=== PATIENT | female | born 1935 | race Caucasian/White ===

== ENCOUNTER 2017-08-24 17:26 | Inpatient (IN) | payer MEDICARE, OTHER ==
[~2017-08-24] VITALS: Ht 170.2 cm; Wt 83.5 kg
--- NOTE | 2017-08-24 17:18 | NUR ---
patient arrived to unit via gurney and ambulance, no complaints of pain, no signs of distress noted, Bahamian speaking but able to verbalize needs in Icelandic, vitals as follows: 97/55, 93% on room air, 74 pulse, 97.5 oral temperature, as instructed no IV's or blood pressures to be drawn on left arm, call light placed in reach, bed locked and in lowest position
[2017-08-24] MEDS ORDERED: SIMV20TA6 PO (17:32)
[2017-08-24] MEDS ORDERED: CALC500T3 PO (17:33)
[2017-08-24] MEDS ORDERED: MEMA10TA PO (17:34)
[2017-08-24] MEDS ORDERED: FURO40TA5 PO (17:35)
[2017-08-24] MEDS ORDERED: METO-356 PO (17:35)
[2017-08-24] MEDS ORDERED: ANAS1TAB8 PO (17:36)
[2017-08-24] MEDS ORDERED: LOSA100T15 PO (17:37)
[2017-08-24] MEDS ORDERED: HYDR12.55 PO (17:37)
[2017-08-24] MEDS ORDERED: LEVE500T20 PO (17:38)
[2017-08-24] MEDS ORDERED: ACET650T10 PO (17:42)
[2017-08-24] MEDS ORDERED: HYDR-3972 PO (17:48)
[2017-08-24] MEDS ORDERED: MAG30ORA PO (17:52)
[2017-08-24] MEDS ORDERED: MAGN400O6 PO (17:56)
[2017-08-24] MEDS ORDERED: ZOLP5TAB8 PO (17:57)
[2017-08-24] MEDS ORDERED: ONDA4TAB10 PO (17:57)
[2017-08-24] MEDS ORDERED: INSU100V28 SQ ×2 (18:00→18:01)
[2017-08-24] MEDS ORDERED: DEXTROSE 50% 50 ML DISP.SYRIN IV PRN ×2 (18:15→21:15)
[2017-08-24] MEDS ORDERED: Z GUARD REMEDY PASTE 57 GM TUBE TOP PRN (18:15)
[2017-08-24] MEDS ORDERED: INSULIN REGULAR, HUMAN 300 UNIT/3 ML VIAL SQ PRN (18:15)
--- NOTE | 2017-08-24 19:35 | NUR ---
Received pt in bed, AAO x 3, faroese speaking but able to communicate basic needs in romansh. Verbally responsive and able to make needs known. Denies pain or discomfort at this time. No acute distress noted. Family at bedside. All safety measures and fall precautions maintained. MD notified regarding medication reconciliation, awaiting response. Call light and all personal belongings within reach. Will continue to monitor.
[2017-08-24 20:23] VITALS: BP 101/62
--- NOTE | 2017-08-24 20:37 | NUR ---
MD notified regarding medication reconciliation. Awaiting response. No acute distress noted. Will continue to monitor.
[2017-08-24] MEDS ORDERED: BLOOD SUGAR DIAGNOSTIC 1 EACH STRIP VI SCH (21:00)
[2017-08-24] MEDS ORDERED: ONDANSETRON HCL 4 MG TABLET PO PRN (21:15)
[2017-08-24] MEDS ORDERED: HYDROCODONE/APAP 5-325MG TABLET PO PRN (21:15)
[2017-08-24] MEDS ORDERED: ZOLPIDEM 5 MG TABLET PO PRN (21:15)
--- NOTE | 2017-08-25 06:32 | NUR ---
Pt slept comfortably throughout the shift. No complaints or pain or discomfort. No acute distress noted. Kept clean and dry. MD completed med recon. All needs anticipated and met accordingly. Safety maintained. Call light and all personal belongings within reach. AM blood sugar noted to be 220; will endorse to AM shift. Will continue to monitor.
[2017-08-25] MEDS: BLOOD SUGAR DIAGNOSTIC 1 EACH STRIP VI SCH ×4 (06:34→20:39)
[2017-08-25 08:37] VITALS: BP 111/65
[2017-08-25] MEDS: LEVETIRACETAM 500 MG TABLET PO SCH ×2 (10:14→20:40)
[2017-08-25] MEDS: LOSARTAN POTASSIUM 50 MG TABLET PO SCH (10:15)
[2017-08-25] MEDS: FUROSEMIDE 40 MG TABLET PO SCH (10:16)
[2017-08-25] MEDS: CALCIUM CARBONATE 500 MG TABLET PO SCH (10:16)
[2017-08-25] MEDS: MEMANTINE HCL 10 MG TABLET PO SCH (10:16)
[2017-08-25] MEDS: METOPROLOL SUCCINATE XL 25 MG TAB.SR.24H PO SCH (10:20)
[2017-08-25] MEDS: ANASTROZOLE 1 MG TABLET PO SCH (10:20)
[2017-08-25] MEDS: INSULIN REGULAR, HUMAN 300 UNIT/3 ML VIAL SQ PRN ×4 (10:22→20:42)
--- NOTE | 2017-08-25 13:59 | NUR ---
INTERDISCIPLINARY TEAM CONFERENCE
--- NOTE | 2017-08-25 15:09 | NUR ---
notified md about critical value for blood sugar. no new orders.
[2017-08-25] MEDS: SIMVASTATIN 20 MG TABLET PO SCH (17:02)
--- NOTE | 2017-08-25 18:31 | NUR ---
pt stable throughout the day. md notified for high blood glucose in lunchtime. covered as ordered. pt vitals stable. no new injuries noted. ordered stool softener because pt has not had a bowel movement in three days. will endorse to assistant casino shift manager nurse.
[2017-08-25] MEDS ORDERED: BISACODYL 5 MG TABLET.DR PO ONE (18:45)
--- NOTE | 2017-08-25 19:35 | NUR ---
Received pt in bed, AAO x 3 with daughter at bedside. No acute distress noted. Verbally responsive and able to make needs known. Denies pain or discomfort at this time. All safety measures and fall precautions maintained. Call light and all personal belongings within reach. Will continue to monitor.
[2017-08-25 20:30] VITALS: BP 105/79
[2017-08-26] MEDS ORDERED: ACETAMINOPHEN 325 MG TABLET PO PRN (00:30)
[2017-08-26] MEDS ORDERED: DEXTROSE 50% 50 ML DISP.SYRIN IV PRN (00:30)
[2017-08-26] MEDS: BLOOD SUGAR DIAGNOSTIC 1 EACH STRIP VI SCH ×4 (06:43→20:40)
--- NOTE | 2017-08-26 07:42 | NUR ---
Patient noted resting in bed with eyes closed, no complaints of pain, no signs of distress noted, call light in reach, bed locked and in lowest position, x2 bed rails, bed alarm in place
[2017-08-26] MEDS: INSULIN REGULAR, HUMAN 300 UNIT/3 ML VIAL SQ PRN ×2 (08:00→12:07)
[2017-08-26] MEDS: MEMANTINE HCL 10 MG TABLET PO SCH (08:41)
[2017-08-26] MEDS: CALCIUM CARBONATE 500 MG TABLET PO SCH (08:41)
[2017-08-26] MEDS: LEVETIRACETAM 500 MG TABLET PO SCH ×2 (08:41→20:36)
[2017-08-26] MEDS: HYDROCHLOROTHIAZIDE 12.5 MG CAPSULE PO SCH (08:42)
[2017-08-26] MEDS: FUROSEMIDE 40 MG TABLET PO SCH (08:42)
[2017-08-26] MEDS: LOSARTAN POTASSIUM 50 MG TABLET PO SCH (08:44)
[2017-08-26] MEDS: ANASTROZOLE 1 MG TABLET PO SCH (08:44)
[2017-08-26] MEDS: METOPROLOL SUCCINATE XL 25 MG TAB.SR.24H PO SCH (08:44)
[2017-08-26 08:55] VITALS: BP 100/56
[2017-08-26] MEDS: SIMVASTATIN 20 MG TABLET PO SCH (17:48)
--- NOTE | 2017-08-26 20:04 | NUR ---
resting in bed. awake alert and oriented. no acute distress noted. fall precautions maintained. admitted lucien subdural hematoma. needs attended. denies any pain nor any discomfort. will monitor patient. voiding without any difficulty.
[2017-08-26] MEDS: INSULIN REGULAR, HUMAN 300 UNITS/3 ML VIAL SQ PRN (20:49)
[2017-08-26 20:53] VITALS: BP 97/63
--- NOTE | 2017-08-27 05:25 | NUR ---
SLEPT MOST OF THE SHIFT. NO ACUTE DISTRESS NOTED. VOIDED. NEEDS ATTENDED. NO COMPLAINTS PRESENTED SO FAR. VSS.
[2017-08-27] MEDS: BLOOD SUGAR DIAGNOSTIC 1 EACH STRIP VI SCH ×4 (06:29→20:42)
[2017-08-27 08:00] VITALS: BP 109/62
[2017-08-27] MEDS: INSULIN REGULAR, HUMAN 300 UNIT/3 ML VIAL SQ PRN ×3 (08:13→16:18)
[2017-08-27] MEDS: MEMANTINE HCL 10 MG TABLET PO SCH (08:15)
[2017-08-27] MEDS: ANASTROZOLE 1 MG TABLET PO SCH (08:15)
[2017-08-27] MEDS: FUROSEMIDE 40 MG TABLET PO SCH (08:15)
[2017-08-27] MEDS: CALCIUM CARBONATE 500 MG TABLET PO SCH (08:16)
[2017-08-27] MEDS: LEVETIRACETAM 500 MG TABLET PO SCH ×2 (08:16→20:37)
[2017-08-27] MEDS: METOPROLOL SUCCINATE XL 25 MG TAB.SR.24H PO SCH (08:17)
[2017-08-27] MEDS: HYDROCHLOROTHIAZIDE 12.5 MG CAPSULE PO SCH (08:17)
--- NOTE | 2017-08-27 08:30 | NUR ---
Received patient awake, alert x4. Resting in bed. Denies any pain. Insulin coverage given, medications tolerated well. Call light within reach encouraged to call for needs.
[2017-08-27] MEDS: LOSARTAN POTASSIUM 50 MG TABLET PO SCH (09:00)
[2017-08-27 09:53] LABS: BASOPHILS # (AUTO) 0.1 K/uL (0.0-8.0); BASOPHILS % (AUTO) 0.9 % (0.0-2.0); EOSINOPHILS # (AUTO) 0.1 K/uL (0.0-0.7); EOSINOPHILS % (AUTO) 1.9 % (0.0-7.0); HEMATOCRIT 39.5 % (31.2-41.9); HEMOGLOBIN 13.4 g/dL (10.9-14.3); LYMPHOCYTES # (AUTO) 1.7 K/uL (20.0-40.0); LYMPHOCYTES % (AUTO) 25.3 % (20.5-51.5); MEAN CORPUSCULAR HEMOGLOBIN 28.2 uug (24.7-32.8); MEAN CORPUSCULAR HGB CONC 34 g/dL (32.3-35.6); MEAN CORPUSCULAR VOLUME 83.1 fL (75.5-95.3); MONOCYTES # (AUTO) 0.4 K/uL (2.0-10.0); MONOCYTES % (AUTO) 6.8 % (0.0-11.0); NEUTROPHILS # (AUTO) 4.3 K/uL (1.8-8.9); NEUTROPHILS % (AUTO) 65.1 % (38.5-71.5); PLATELET COUNT (AUTO) 221 K/uL (179-408); RED BLOOD CELL COUNT(AUTO) 4.75 MIL/uL (3.63-4.92); WHITE BLOOD COUNT (AUTO) 6.6 K/uL (3.8-11.8)
[2017-08-27 10:11] LABS: ALANINE AMINOTRANSFERASE 20 U/L (14-59); ALKALINE PHOSPHATASE 58 U/L (50-136); ASPARTATE AMINOTRANSFERASE 9 U/L (15-37); BILIRUBIN,TOTAL 0.5 mg/dL (0.2-1.0); CARBON DIOXIDE 30 mmol/L (21-32); CHLORIDE 97 mmol/L (98-107); CREATININE 0.8 mg/dL (0.6-1.3); GLUCOSE 288 mg/dL (74-106); MAGNESIUM 1.5 mg/dL (1.8-2.4); PHOSPHOROUS 3.9 mg/dL (2.5-4.9); TOTAL PROTEIN, SERUM 6.4 g/dL (6.4-8.2); UREA NITROGEN, BLOOD 17 mg/dL (7-18)
--- NOTE | 2017-08-27 10:20 | NUR ---
Critical lab value Potassium at 2.8. Paged and informed Dr. Rishi Perez.
[2017-08-27 10:21] LABS: POTASSIUM 2.8 mmol/L (3.5-5.1)
[2017-08-27] MEDS ORDERED: POTASSIUM CHLORIDE 20 MEQ TAB.PRT.SR PO ONE (10:45)
[2017-08-27] MEDS: SIMVASTATIN 20 MG TABLET PO SCH (18:03)
--- NOTE | 2017-08-27 18:25 | NUR ---
With family at bedside. Denies any pain. Stable throughout the shift.
--- NOTE | 2017-08-27 20:04 | NUR ---
resting in bed. aaox3 no acute distress noted. needs attended. kept comfortable. denies any pain nor any discomfort. will monitor patient.
[2017-08-27 20:17] VITALS: BP 97/53
[2017-08-27] MEDS: DOCUSATE SODIUM 100 MG CAPSULE PO SCH (20:38)
[2017-08-27] MEDS: INSULIN REGULAR, HUMAN 300 UNITS/3 ML VIAL SQ PRN (20:44)
[2017-08-28] MEDS: BLOOD SUGAR DIAGNOSTIC 1 EACH STRIP VI SCH ×4 (06:20→21:13)
--- NOTE | 2017-08-28 07:15 | NUR ---
Received report from night shift supervisor nurse, patient in bed awake, no evidence of distress noted at this time. bed in low position, side rails up x2.
[2017-08-28] MEDS: INSULIN REGULAR, HUMAN 300 UNIT/3 ML VIAL SQ PRN ×3 (08:13→17:13)
[2017-08-28] MEDS: CALCIUM CARBONATE 500 MG TABLET PO SCH (08:14)
[2017-08-28] MEDS: LOSARTAN POTASSIUM 50 MG TABLET PO SCH ×2 (08:14→08:30)
[2017-08-28] MEDS: HYDROCHLOROTHIAZIDE 12.5 MG CAPSULE PO SCH ×2 (08:14→08:30)
[2017-08-28] MEDS: FUROSEMIDE 40 MG TABLET PO SCH (08:14)
[2017-08-28] MEDS: MEMANTINE HCL 10 MG TABLET PO SCH (08:20)
[2017-08-28] MEDS: LEVETIRACETAM 500 MG TABLET PO SCH ×2 (08:20→21:13)
[2017-08-28] MEDS: ANASTROZOLE 1 MG TABLET PO SCH (08:23)
[2017-08-28] MEDS: METOPROLOL SUCCINATE XL 25 MG TAB.SR.24H PO SCH (08:29)
[2017-08-28 08:55] VITALS: BP 91/55
[2017-08-28] MEDS: SIMVASTATIN 20 MG TABLET PO SCH (17:11)
--- NOTE | 2017-08-28 18:00 | NUR ---
Patient has been cooperative with care, no incidents today. Patient participated in all therapies with no distress noted. Currently patient is in bed, awake, no evidence of distress noted. Bed in low position, side rails up x2.
--- NOTE | 2017-08-28 19:30 | NUR ---
Patient stable at start of shift. Bahamian speaking but is able to speak some words in Maltese and make her needs known. Patient is A/O x3 with no current signs of pain, sob, or acute distress. Pertinent assessment completed. Bed in low position, locked, x2 side rails up. Encouraged patient to use call light when in need of assistance. Call light placed within reach. Will continue to monitor pt through shift.
[2017-08-28 20:50] VITALS: BP 105/65
[2017-08-28] MEDS: DOCUSATE SODIUM 100 MG CAPSULE PO SCH (21:13)
[2017-08-28] MEDS: INSULIN REGULAR, HUMAN 300 UNITS/3 ML VIAL SQ PRN (21:24)
--- NOTE | 2017-08-29 05:51 | NUR ---
Patient stable through shift. No acute distress noted. Was able to sleep well through the shift. Vital signs WNL. All needs attended to. All meds administered as ordered per MD. Safety measures implemented. Call light within reach of pt. Will endorse to day shift nurse.
[2017-08-29] MEDS: BLOOD SUGAR DIAGNOSTIC 1 EACH STRIP VI SCH ×4 (06:39→20:43)
[2017-08-29 07:03] LABS: CARBON DIOXIDE 31 mmol/L (21-32); CREATININE 0.7 mg/dL (0.6-1.3); GLUCOSE 187 mg/dL (74-106); UREA NITROGEN, BLOOD 16 mg/dL (7-18)
[2017-08-29 07:08] LABS: CHLORIDE 100 mmol/L (98-107)
[2017-08-29 07:37] LABS: POTASSIUM 2.8 mmol/L (3.5-5.1)
[2017-08-29 08:14] VITALS: BP 129/60
--- NOTE | 2017-08-29 09:09 | NUR ---
Notified Dr. Fredo Brown regarding potassium of 2.8 with new order for potassium PO and IV. Patient made aware.
[2017-08-29] MEDS ORDERED: POTASSIUM CHLORIDE 20 MEQ TAB.PRT.SR PO ONE (09:15)
[2017-08-29] MEDS ORDERED: POTASSIUM CHLORIDE 50 ML IV SCH (09:15)
[2017-08-29] MEDS: LEVETIRACETAM 500 MG TABLET PO SCH ×2 (09:40→20:42)
[2017-08-29] MEDS: FUROSEMIDE 40 MG TABLET PO SCH (09:41)
[2017-08-29] MEDS: MEMANTINE HCL 10 MG TABLET PO SCH (09:42)
[2017-08-29] MEDS: CALCIUM CARBONATE 500 MG TABLET PO SCH (09:43)
[2017-08-29] MEDS: HYDROCHLOROTHIAZIDE 12.5 MG CAPSULE PO SCH (09:44)
[2017-08-29] MEDS: LOSARTAN POTASSIUM 50 MG TABLET PO SCH (09:44)
[2017-08-29] MEDS: METOPROLOL SUCCINATE XL 25 MG TAB.SR.24H PO SCH (09:45)
[2017-08-29] MEDS: ANASTROZOLE 1 MG TABLET PO SCH (09:48)
[2017-08-29] MEDS: INSULIN REGULAR, HUMAN 300 UNIT/3 ML VIAL SQ PRN ×2 (10:03→17:23)
[2017-08-29] MEDS: NORMAL SALINE IV SCH ×2 (12:06→14:42)
[2017-08-29] MEDS: POTASSIUM CHLORIDE IV SCH ×2 (12:06→14:42)
--- NOTE | 2017-08-29 15:05 | NUR ---
Consult order placed for meal preferences. Spoke with the patient about current diet ([id number]).bill recapitulation clerk also assist patient on menu selection. Family is brining food from home,spoke with the nurse and request to have MD approval for food from home. Family is aware of current diet/DM diet. Addendum: 08/31/17 at [address] Amended: Links added.
[2017-08-29] MEDS: SIMVASTATIN 20 MG TABLET PO SCH (17:21)
--- NOTE | 2017-08-29 19:44 | NUR ---
Pt sitting on the chair at bedside. Assisted to the bathroom. Ambulate using walker with assist. AAO x3. Italian speaking. Able to make needs known. No acute distress noted. No c/o pain or discomfort. Safety measures maintained. Bed alarm on. Call light and personal belongings within reach. Continue to monitor.
--- NOTE | 2017-08-29 20:19 | NUR ---
Informed Dr. Fredo Brown regarding blood sugar trend and MD ordered Metformin 500mg BID. Also informed him that patient is routinely taking Lasix and MD ordered potassium 10mEq daily and to repeat BMP in am. Order carried out.
[2017-08-29 20:21] VITALS: BP 98/58
[2017-08-29] MEDS: MAGNESIUM HYDROXIDE 30 ML LIQUID UDC PO PRN (20:42)
[2017-08-29] MEDS: DOCUSATE SODIUM 100 MG CAPSULE PO SCH (20:42)
[2017-08-29] MEDS: INSULIN REGULAR, HUMAN 300 UNITS/3 ML VIAL SQ PRN (20:46)
--- NOTE | 2017-08-30 05:48 | NUR ---
Pt slept comfortably t/o the night. Meds and insulin coverage given per MD's order. Assisted to the bathroom as needed. All needs attended to promptly. Will endorse to day shift RN. Continue to monitor.
[2017-08-30] MEDS: BLOOD SUGAR DIAGNOSTIC 1 EACH STRIP VI SCH ×4 (06:36→20:39)
[2017-08-30 08:36] LABS: CARBON DIOXIDE 33 mmol/L (21-32); CHLORIDE 101 mmol/L (98-107); CREATININE 0.7 mg/dL (0.6-1.3); GLUCOSE 174 mg/dL (74-106); POTASSIUM 3.4 mmol/L (3.5-5.1); UREA NITROGEN, BLOOD 20 mg/dL (7-18)
[2017-08-30] MEDS: FUROSEMIDE 40 MG TABLET PO SCH (08:56)
[2017-08-30] MEDS: LEVETIRACETAM 500 MG TABLET PO SCH ×2 (08:56→20:38)
[2017-08-30] MEDS: POTASSIUM CHLORIDE 10 MEQ CAPSULE.SA PO SCH (08:56)
[2017-08-30] MEDS: HYDROCHLOROTHIAZIDE 12.5 MG CAPSULE PO SCH (08:57)
[2017-08-30] MEDS: METFORMIN HCL 500 MG TABLET PO SCH ×2 (08:57→18:35)
[2017-08-30] MEDS: CALCIUM CARBONATE 500 MG TABLET PO SCH (08:57)
[2017-08-30] MEDS: MEMANTINE HCL 10 MG TABLET PO SCH (08:59)
[2017-08-30] MEDS: LOSARTAN POTASSIUM 50 MG TABLET PO SCH (09:00)
[2017-08-30] MEDS: METOPROLOL SUCCINATE XL 25 MG TAB.SR.24H PO SCH (09:00)
[2017-08-30] MEDS: ANASTROZOLE 1 MG TABLET PO SCH (09:04)
[2017-08-30] MEDS: INSULIN REGULAR, HUMAN 300 UNIT/3 ML VIAL SQ PRN ×3 (09:05→16:53)
[2017-08-30 11:46] VITALS: BP 100/46
[2017-08-30] MEDS: SIMVASTATIN 20 MG TABLET PO SCH (18:35)
--- NOTE | 2017-08-30 19:30 | NUR ---
Patient stable sleeping comfortably at start of shift. No signs of pain, sob, or acute distress. patient is a/o x4 & North Korean speaking but able to make needs known. Pertinent assessment completed. Vital signs WNL at start of shift. Bed in low position x2 side rails up. Call light placed within reach of pt. will continue to monitor pt through shift.
[2017-08-30 20:10] VITALS: BP 108/56
[2017-08-30] MEDS: DOCUSATE SODIUM 100 MG CAPSULE PO SCH (20:38)
[2017-08-30] MEDS: INSULIN REGULAR, HUMAN 300 UNITS/3 ML VIAL SQ PRN (20:43)
--- NOTE | 2017-08-31 05:35 | NUR ---
Patient slept well through shift. No acute distress noted. Assisted patient to restroom x2 during the shift. All needs attended to. All meds & insulin coverage administered per MD order. Safety measures implemented. Call light within reach of pt. will endorse to day shift RN.
[2017-08-31] MEDS: BLOOD SUGAR DIAGNOSTIC 1 EACH STRIP VI SCH ×4 (06:36→20:22)
--- NOTE | 2017-08-31 06:36 | NUR ---
Blood sugar this AM at 178. Will endorse to day shift RN to administer insulin with breakfast tray.
[2017-08-31 08:32] VITALS: BP 116/54
[2017-08-31] MEDS: FUROSEMIDE 40 MG TABLET PO SCH (08:51)
[2017-08-31] MEDS: POTASSIUM CHLORIDE 10 MEQ CAPSULE.SA PO SCH (08:51)
[2017-08-31] MEDS: METFORMIN HCL 500 MG TABLET PO SCH ×2 (08:51→17:38)
[2017-08-31] MEDS: LEVETIRACETAM 500 MG TABLET PO SCH ×2 (08:51→20:22)
[2017-08-31] MEDS: CALCIUM CARBONATE 500 MG TABLET PO SCH (08:51)
[2017-08-31] MEDS: MEMANTINE HCL 10 MG TABLET PO SCH (08:52)
[2017-08-31] MEDS: HYDROCHLOROTHIAZIDE 12.5 MG CAPSULE PO SCH (08:52)
[2017-08-31] MEDS: LOSARTAN POTASSIUM 50 MG TABLET PO SCH (08:53)
[2017-08-31] MEDS: METOPROLOL SUCCINATE XL 25 MG TAB.SR.24H PO SCH (08:54)
[2017-08-31] MEDS: ANASTROZOLE 1 MG TABLET PO SCH (09:02)
[2017-08-31] MEDS: INSULIN REGULAR, HUMAN 300 UNIT/3 ML VIAL SQ PRN (12:13)
[2017-08-31] MEDS: SIMVASTATIN 20 MG TABLET PO SCH (17:38)
[2017-08-31] MEDS: MAGNESIUM HYDROXIDE 30 ML LIQUID UDC PO PRN (17:45)
--- NOTE | 2017-08-31 19:30 | NUR ---
Patient currently sleeping comfortably at start of shift. No signs of acute distress, pain, or sob. Patient is a/ox3, Montenegrin speaking but able to make needs known. Pertinent assessment completed. bed in low position x2 side rails up. Call light within reach of pt. Will continue to monitor pt through shift.
[2017-08-31] MEDS: DOCUSATE SODIUM 100 MG CAPSULE PO SCH (20:22)
[2017-08-31] MEDS: INSULIN REGULAR, HUMAN 300 UNITS/3 ML VIAL SQ PRN (20:24)
--- NOTE | 2017-09-01 06:07 | NUR ---
Patient slept well through shift. No acute distress noted. Vital signs WNL. All needs attended to. All meds & insulin administered as ordered per MD. Safety measures implemented. Call light within reach of patient. Will endorse to day shift RN.
[2017-09-01] MEDS: BLOOD SUGAR DIAGNOSTIC 1 EACH STRIP VI SCH ×4 (06:31→21:19)
[2017-09-01 08:00] VITALS: BP 94/50
[2017-09-01] MEDS: INSULIN REGULAR, HUMAN 300 UNIT/3 ML VIAL SQ PRN ×2 (08:06→12:24)
[2017-09-01] MEDS: CALCIUM CARBONATE 500 MG TABLET PO SCH (08:07)
[2017-09-01] MEDS: LEVETIRACETAM 500 MG TABLET PO SCH ×2 (08:07→21:19)
[2017-09-01] MEDS: POTASSIUM CHLORIDE 10 MEQ CAPSULE.SA PO SCH (08:07)
[2017-09-01] MEDS: METFORMIN HCL 500 MG TABLET PO SCH ×2 (08:08→17:13)
[2017-09-01] MEDS: MEMANTINE HCL 10 MG TABLET PO SCH (08:08)
[2017-09-01] MEDS: FUROSEMIDE 40 MG TABLET PO SCH (08:08)
[2017-09-01] MEDS: METOPROLOL SUCCINATE XL 25 MG TAB.SR.24H PO SCH (08:09)
[2017-09-01] MEDS: LOSARTAN POTASSIUM 50 MG TABLET PO SCH (08:10)
[2017-09-01] MEDS: HYDROCHLOROTHIAZIDE 12.5 MG CAPSULE PO SCH (08:12)
[2017-09-01] MEDS: ANASTROZOLE 1 MG TABLET PO SCH (08:15)
--- NOTE | 2017-09-01 09:05 | NUR ---
SBAR report received, board updated. Pt assessed to alert and oriented. Pt able to make needs known. No acute distress noted. Bed in locked and lowest position. pt ate 100% of breakfast. Pt complaint with all routine morning medications. BP medications held due to decreased BP 94/50, 62. All comfort and safety measures met. Will continue to monitor.
--- NOTE | 2017-09-01 14:15 | NUR ---
INTERDISCIPLINARY TEAM CONFERENCE
[2017-09-01] MEDS: SIMVASTATIN 20 MG TABLET PO SCH (17:13)
--- NOTE | 2017-09-01 18:11 | NUR ---
Pt sitting comfortably in semi-fowlers. Bed in locked & lowest position. Personal belongings and call light placed within reach. Pt last blood sugar levels before dinner 124 requiring no insulin coverage. Pt denies pain and discomfort at this time. Will continue to monitor and endorse to oncoming night assistant.
--- NOTE | 2017-09-01 19:40 | NUR ---
Received pt in bed, AAO x 3 with family at bedside. No acute distress noted. Verbally responsive and able to make needs known. Denies pain or discomfort at this time. All safety measures and fall precautions maintained. Call light and all personal belongings within reach. Will continue to monitor.
[2017-09-01 21:06] VITALS: BP 102/57
[2017-09-01] MEDS: DOCUSATE SODIUM 100 MG CAPSULE PO SCH (21:19)
[2017-09-01] MEDS: INSULIN REGULAR, HUMAN 300 UNITS/3 ML VIAL SQ PRN (21:22)
[2017-09-02] MEDS: BLOOD SUGAR DIAGNOSTIC 1 EACH STRIP VI SCH ×4 (06:32→20:29)
--- NOTE | 2017-09-02 08:00 | NUR ---
Received patient awake, alert, verbally responsive sitting up on the chair, not in any form of acute distress. She denies any pain or discomfort at this time. Call light placed within reach. Reminded to use call light when in need of assistance. Assisted to her needs.
[2017-09-02 09:00] VITALS: BP 106/47
[2017-09-02] MEDS: LOSARTAN POTASSIUM 50 MG TABLET PO SCH (09:00)
[2017-09-02] MEDS: METOPROLOL SUCCINATE XL 25 MG TAB.SR.24H PO SCH (09:00)
[2017-09-02] MEDS: HYDROCHLOROTHIAZIDE 12.5 MG CAPSULE PO SCH (09:00)
[2017-09-02] MEDS: METFORMIN HCL 500 MG TABLET PO SCH ×2 (09:07→17:40)
[2017-09-02] MEDS: FUROSEMIDE 40 MG TABLET PO SCH (09:07)
[2017-09-02] MEDS: CALCIUM CARBONATE 500 MG TABLET PO SCH (09:07)
[2017-09-02] MEDS: POTASSIUM CHLORIDE 10 MEQ CAPSULE.SA PO SCH (09:08)
[2017-09-02] MEDS: LEVETIRACETAM 500 MG TABLET PO SCH ×2 (09:08→20:27)
[2017-09-02] MEDS: MEMANTINE HCL 10 MG TABLET PO SCH (09:09)
[2017-09-02] MEDS: ANASTROZOLE 1 MG TABLET PO SCH (09:12)
[2017-09-02] MEDS: INSULIN REGULAR, HUMAN 300 UNIT/3 ML VIAL SQ PRN ×2 (09:14→12:35)
[2017-09-02] MEDS: SIMVASTATIN 20 MG TABLET PO SCH (17:40)
--- NOTE | 2017-09-02 19:35 | NUR ---
Received patient laying in bed, awake, alert with family at bedside. shift report done at bedside. Vital signs taken and recorded, with no signs of sob, or acute distress. Denies of pain. Pertinent assessment completed. Safety measures provided, bed in low position x2 side rails up. call light placed within reach of pt. will continue to monitor pt through shift.
[2017-09-02] MEDS: DOCUSATE SODIUM 100 MG CAPSULE PO SCH (20:27)
[2017-09-02] MEDS: MAGNESIUM HYDROXIDE 30 ML LIQUID UDC PO PRN (20:27)
[2017-09-02] MEDS: INSULIN REGULAR, HUMAN 300 UNITS/3 ML VIAL SQ PRN (20:31)
[2017-09-02 20:43] VITALS: BP 103/56
[2017-09-03] MEDS: BLOOD SUGAR DIAGNOSTIC 1 EACH STRIP VI SCH ×4 (06:18→20:36)
[2017-09-03 07:00] VITALS: BP 104/51
--- NOTE | 2017-09-03 07:30 | NUR ---
received report from night nurse. patient stable, awake in bed upon initial assessment. no s/s pain or acute distress. VSS. call light within reach. will continue to monitor
[2017-09-03] MEDS: INSULIN REGULAR, HUMAN 300 UNIT/3 ML VIAL SQ PRN ×2 (07:59→11:50)
[2017-09-03] MEDS: METFORMIN HCL 500 MG TABLET PO SCH ×2 (08:02→18:05)
[2017-09-03] MEDS: LOSARTAN POTASSIUM 50 MG TABLET PO SCH (09:00)
[2017-09-03] MEDS: METOPROLOL SUCCINATE XL 25 MG TAB.SR.24H PO SCH (09:00)
[2017-09-03] MEDS: HYDROCHLOROTHIAZIDE 12.5 MG CAPSULE PO SCH (09:51)
[2017-09-03] MEDS: ANASTROZOLE 1 MG TABLET PO SCH (09:51)
[2017-09-03] MEDS: MEMANTINE HCL 10 MG TABLET PO SCH (09:52)
[2017-09-03] MEDS: POTASSIUM CHLORIDE 10 MEQ CAPSULE.SA PO SCH (09:53)
[2017-09-03] MEDS: CALCIUM CARBONATE 500 MG TABLET PO SCH (09:54)
[2017-09-03] MEDS: LEVETIRACETAM 500 MG TABLET PO SCH ×2 (09:54→20:34)
[2017-09-03] MEDS: FUROSEMIDE 40 MG TABLET PO SCH (09:54)
[2017-09-03] MEDS: SIMVASTATIN 20 MG TABLET PO SCH (18:05)
--- NOTE | 2017-09-03 18:22 | NUR ---
patient stable entire shift. tolerated all cares and cooperative. no s.s pain or acute distress. patient is sitting in bedside chair, visitors at bedside. will continue to monitor.
[2017-09-03 20:16] VITALS: BP 120/68
[2017-09-03] MEDS: DOCUSATE SODIUM 100 MG CAPSULE PO SCH (20:34)
[2017-09-03] MEDS: INSULIN REGULAR, HUMAN 300 UNITS/3 ML VIAL SQ PRN (20:39)
[2017-09-04] MEDS: BLOOD SUGAR DIAGNOSTIC 1 EACH STRIP VI SCH ×4 (06:25→20:02)
[2017-09-04 08:00] VITALS: BP 97/55
[2017-09-04] MEDS: METFORMIN HCL 500 MG TABLET PO SCH ×2 (08:14→17:21)
[2017-09-04] MEDS: POTASSIUM CHLORIDE 10 MEQ CAPSULE.SA PO SCH (08:14)
[2017-09-04] MEDS: MEMANTINE HCL 10 MG TABLET PO SCH (08:15)
[2017-09-04] MEDS: CALCIUM CARBONATE 500 MG TABLET PO SCH (08:15)
[2017-09-04] MEDS: FUROSEMIDE 40 MG TABLET PO SCH (08:15)
[2017-09-04] MEDS: LEVETIRACETAM 500 MG TABLET PO SCH ×2 (08:15→20:02)
[2017-09-04] MEDS: ANASTROZOLE 1 MG TABLET PO SCH (08:17)
[2017-09-04] MEDS: INSULIN REGULAR, HUMAN 300 UNIT/3 ML VIAL SQ PRN ×3 (08:22→17:22)
[2017-09-04] MEDS: LOSARTAN POTASSIUM 50 MG TABLET PO SCH (08:24)
[2017-09-04] MEDS: METOPROLOL SUCCINATE XL 25 MG TAB.SR.24H PO SCH (08:25)
[2017-09-04] MEDS: HYDROCHLOROTHIAZIDE 12.5 MG CAPSULE PO SCH (08:25)
--- NOTE | 2017-09-04 10:14 | NUR ---
SBAR report received, board updated. Pt assessed to be alert and oriented and able to make needs known. 2 units of insulin administered per sliding scale. Pt consumed 100% of breakfast. Pt compliant with all routinely scheduled medications, BP medications held due to decreased BP of 97/55. Pt denies dizziness or lightheadedness. Pt assisted to bathroom x2, voided and BMx1. Bed in locked and lowest position, with side rails up x2. Personal items and call light placed within reach. Will continue to monitor.
--- NOTE | 2017-09-04 16:16 | NUR ---
I agree Addendum: 09/04/17 at 1616 by VIVI BORRERO OT Amended: Links added.
--- NOTE | 2017-09-04 16:17 | NUR ---
I agree Addendum: 09/04/17 at 1617 by VIVI BORRERO OT Amended: Links added.
[2017-09-04] MEDS: SIMVASTATIN 20 MG TABLET PO SCH (17:21)
[2017-09-04] MEDS: MAGNESIUM HYDROXIDE 30 ML LIQUID UDC PO PRN (17:30)
--- NOTE | 2017-09-04 18:35 | NUR ---
Pt sitting in semi-fowlers position comfortably in bed. Pt able to make needs known. Blood sugar 151 covered with 2 units of insulin. Family visited during dinner. Pt clean and dry, administered M.O.M. for constipation as requested per PRN orders. Blood sugar 151 covered with 2 units of insulin. All comfort and safety needs met at this time. Call light placed within reach. Will continue to monitor.
--- NOTE | 2017-09-04 19:40 | NUR ---
Patient laying in bed, awake and A/O x1. shift report done at bedside. Vital signs taken and recorded, with no signs of sob, or acute distress. Denies of pain. Pertinent assessment completed. Safety measures provided, bed in low position x2 side rails up. call light placed within reach of pt. will continue to monitor pt through shift.
[2017-09-04] MEDS: DOCUSATE SODIUM 100 MG CAPSULE PO SCH (20:02)
[2017-09-05] MEDS: BLOOD SUGAR DIAGNOSTIC 1 EACH STRIP VI SCH ×4 (06:27→20:28)
--- NOTE | 2017-09-05 07:30 | NUR ---
Received pt in bed, a/o x3, no acute distress noted. Assisted pt OOB ambulating to bathroom with FWW. Call light within reach, bed kept low/locked position. Plan of care discussed.
[2017-09-05] MEDS: CALCIUM CARBONATE 500 MG TABLET PO SCH (08:22)
[2017-09-05] MEDS: HYDROCHLOROTHIAZIDE 12.5 MG CAPSULE PO SCH ×2 (08:22→08:35)
[2017-09-05] MEDS: FUROSEMIDE 40 MG TABLET PO SCH (08:22)
[2017-09-05] MEDS: METFORMIN HCL 500 MG TABLET PO SCH ×2 (08:22→17:23)
[2017-09-05] MEDS: LEVETIRACETAM 500 MG TABLET PO SCH ×2 (08:22→20:29)
[2017-09-05] MEDS: POTASSIUM CHLORIDE 10 MEQ CAPSULE.SA PO SCH (08:22)
[2017-09-05] MEDS: METOPROLOL SUCCINATE XL 25 MG TAB.SR.24H PO SCH (08:23)
[2017-09-05] MEDS: LOSARTAN POTASSIUM 50 MG TABLET PO SCH (08:23)
[2017-09-05] MEDS: INSULIN REGULAR, HUMAN 300 UNIT/3 ML VIAL SQ PRN ×3 (08:25→17:25)
[2017-09-05] MEDS: ANASTROZOLE 1 MG TABLET PO SCH (08:26)
[2017-09-05] MEDS: MEMANTINE HCL 10 MG TABLET PO SCH (08:34)
[2017-09-05 09:30] VITALS: BP 104/64
--- NOTE | 2017-09-05 09:30 | NUR ---
Blood pressure rechecked 104/64
[2017-09-05 10:29] VITALS: BP 89/44
--- NOTE | 2017-09-05 15:00 | NUR ---
Pt seen by Dr. Gracia with no new orders received. Made aware of b/p low this am, pt asymptomatic.
[2017-09-05] MEDS: SIMVASTATIN 20 MG TABLET PO SCH (17:23)
--- NOTE | 2017-09-05 18:28 | NUR ---
Pt sitting in chair, daughter visited pt, updated on plan of care. No acute distress noted. Acu check 162 4 units of regular insulin given. Call light kept within reach. pt ambulating to bathroom with stanby assist.
--- NOTE | 2017-09-05 19:40 | NUR ---
Shift report done at bedside. Received patient seated on a chair, awake and verbally responsive. Vital signs taken and recorded, with no signs of sob, or acute distress. Denies of pain. Pertinent assessment completed. Safety measures provided, bed in low position x2 side rails up. call light placed within reach of pt. will continue to monitor pt through shift.
[2017-09-05 20:21] VITALS: BP 113/59
[2017-09-05] MEDS: DOCUSATE SODIUM 100 MG CAPSULE PO SCH (20:30)
[2017-09-05] MEDS: INSULIN REGULAR, HUMAN 300 UNITS/3 ML VIAL SQ PRN (20:37)
[2017-09-06] MEDS: BLOOD SUGAR DIAGNOSTIC 1 EACH STRIP VI SCH ×4 (06:26→20:40)
[2017-09-06 07:00] VITALS: BP 99/51
[2017-09-06 07:03] LABS: BASOPHILS # (AUTO) 0.1 K/uL (0.0-8.0); BASOPHILS % (AUTO) 0.9 % (0.0-2.0); EOSINOPHILS # (AUTO) 0.1 K/uL (0.0-0.7); EOSINOPHILS % (AUTO) 1.5 % (0.0-7.0); HEMATOCRIT 36.2 % (31.2-41.9); HEMOGLOBIN 12.1 g/dL (10.9-14.3); LYMPHOCYTES # (AUTO) 1.8 K/uL (20.0-40.0); LYMPHOCYTES % (AUTO) 26.7 % (20.5-51.5); MEAN CORPUSCULAR HEMOGLOBIN 28.1 uug (24.7-32.8); MEAN CORPUSCULAR HGB CONC 33 g/dL (32.3-35.6); MEAN CORPUSCULAR VOLUME 84.3 fL (75.5-95.3); MONOCYTES # (AUTO) 0.5 K/uL (2.0-10.0); MONOCYTES % (AUTO) 7.9 % (0.0-11.0); NEUTROPHILS # (AUTO) 4.3 K/uL (1.8-8.9); PLATELET COUNT (AUTO) 220 K/uL (179-408); RED BLOOD CELL COUNT(AUTO) 4.29 MIL/uL (3.63-4.92); WHITE BLOOD COUNT (AUTO) 6.8 K/uL (3.8-11.8)
[2017-09-06 07:09] LABS: CARBON DIOXIDE 29 mmol/L (21-32); CHLORIDE 104 mmol/L (98-107); CREATININE 0.8 mg/dL (0.6-1.3); GLUCOSE 178 mg/dL (74-106); POTASSIUM 3.4 mmol/L (3.5-5.1); UREA NITROGEN, BLOOD 15 mg/dL (7-18)
[2017-09-06] MEDS: METFORMIN HCL 500 MG TABLET PO SCH ×2 (08:43→17:07)
[2017-09-06] MEDS: LOSARTAN POTASSIUM 50 MG TABLET PO SCH (08:44)
[2017-09-06] MEDS: METOPROLOL SUCCINATE XL 25 MG TAB.SR.24H PO SCH (08:45)
[2017-09-06] MEDS: FUROSEMIDE 40 MG TABLET PO SCH (08:45)
[2017-09-06] MEDS: HYDROCHLOROTHIAZIDE 12.5 MG CAPSULE PO SCH (08:45)
[2017-09-06] MEDS: CALCIUM CARBONATE 500 MG TABLET PO SCH (08:46)
[2017-09-06] MEDS: POTASSIUM CHLORIDE 10 MEQ CAPSULE.SA PO SCH (08:46)
[2017-09-06] MEDS: MEMANTINE HCL 10 MG TABLET PO SCH (08:47)
[2017-09-06] MEDS: ANASTROZOLE 1 MG TABLET PO SCH (08:49)
[2017-09-06] MEDS: LEVETIRACETAM 500 MG TABLET PO SCH ×2 (08:53→20:25)
[2017-09-06] MEDS: INSULIN REGULAR, HUMAN 300 UNIT/3 ML VIAL SQ PRN ×2 (12:18→17:08)
[2017-09-06] MEDS ORDERED: POTASSIUM CHLORIDE 20 MEQ TAB.PRT.SR PO ONE (16:15)
[2017-09-06] MEDS: SIMVASTATIN 20 MG TABLET PO SCH (17:07)
--- NOTE | 2017-09-06 18:24 | NUR ---
Patient is currently in bed, up in the wheelchair as well during the day, participated with PT/OT as well. Patient is awake and alert, pertinent assessments done, no signs and no symptoms of acute distress, denies pain. Skin is warm and dry to touch, afebrile, no episode of hypoglycemia or hyperglycemia at this time. Needs attended promptly. Compliant with her plan of care, needs attended promptly call light is in reach.
[2017-09-06 19:47] VITALS: BP 99/60
--- NOTE | 2017-09-06 20:01 | NUR ---
Received pt sitting on a chair, alert, awake and oriented x4. Able to make needs known. No signs/symptoms of distress noted. No complaints of pain or discomfort. Breathing even and unlabored with normal respirations. Vital signs stable. Safety and fall precautions observed and maintained. Call light within reach. All needs attended.
[2017-09-06] MEDS: DOCUSATE SODIUM 100 MG CAPSULE PO SCH (20:25)
[2017-09-06] MEDS: INSULIN REGULAR, HUMAN 300 UNITS/3 ML VIAL SQ PRN (20:32)
--- NOTE | 2017-09-07 05:31 | NUR ---
Pt slept well throughout the shift with no acute distress noted and no complaints of pain or discomfort. Breathing even and unlabored with normal respirations. No signs/symptoms of hypo/hyperglycemia noted. Ambulates to the bathroom with walker and standby assist. kept clean, dry and comfortable. Call light within reach. All needs attended.
[2017-09-07] MEDS: BLOOD SUGAR DIAGNOSTIC 1 EACH STRIP VI SCH ×4 (06:26→20:58)
[2017-09-07 07:00] VITALS: BP 96/49
--- NOTE | 2017-09-07 07:00 | NUR ---
Received client in bed sleeping in a semi mckenzie position, bed is at the lowest position for safety and call light within reach for assistance. Client is noted to be on room air. No IVs or hydration noted. No apparent signs and symptoms of SOB, pain, distress or discomfort.
--- NOTE | 2017-09-07 07:30 | NUR ---
Noted client sitting in the chair, ready for breakfast
[2017-09-07] MEDS: LOSARTAN POTASSIUM 50 MG TABLET PO SCH (08:29)
[2017-09-07] MEDS: METOPROLOL SUCCINATE XL 25 MG TAB.SR.24H PO SCH (08:30)
[2017-09-07] MEDS: HYDROCHLOROTHIAZIDE 12.5 MG CAPSULE PO SCH (08:42)
[2017-09-07] MEDS: METFORMIN HCL 500 MG TABLET PO SCH ×2 (08:43→17:22)
[2017-09-07] MEDS: MEMANTINE HCL 10 MG TABLET PO SCH (08:43)
[2017-09-07] MEDS: CALCIUM CARBONATE 500 MG TABLET PO SCH (08:43)
[2017-09-07] MEDS: POTASSIUM CHLORIDE 10 MEQ CAPSULE.SA PO SCH (08:43)
[2017-09-07] MEDS: FUROSEMIDE 40 MG TABLET PO SCH (08:44)
[2017-09-07] MEDS: ANASTROZOLE 1 MG TABLET PO SCH (08:45)
[2017-09-07] MEDS: INSULIN REGULAR, HUMAN 300 UNIT/3 ML VIAL SQ PRN ×2 (08:53→12:15)
--- NOTE | 2017-09-07 09:15 | NUR ---
Physical therapist came and guided her to the physical therapy room. Noted to ambulate well with walker
[2017-09-07] MEDS: LEVETIRACETAM 500 MG TABLET PO SCH ×2 (09:24→20:56)
--- NOTE | 2017-09-07 15:58 | NUR ---
I agree Addendum: 09/07/17 at 1559 by VIVI BORRERO OT Amended: Links added.
--- NOTE | 2017-09-07 15:58 | NUR ---
I agree Addendum: 09/07/17 at 1558 by VIVI BORRERO OT Amended: Links added.
[2017-09-07] MEDS: SIMVASTATIN 20 MG TABLET PO SCH (17:22)
--- NOTE | 2017-09-07 18:21 | NUR ---
End of shift notes: client has been compliant with all nursing care, medication administration, OT and PT services. Informed client the purpose for all medications. Noted client to be sitting in her chair most of the day and watching television. Able to ambulate with walker to RR with no apparent signs ans symptoms of SOB, pain, distress or discomfort. able to communicate and make needs known.
--- NOTE | 2017-09-07 19:40 | NUR ---
Received pt up in chair, AAO x 3 with no acute distress noted. Denies pain or discomfort. Verbally responsive and able to make needs known. All safety measures and fall precautions maintained. Call light and all personal belongings within reach. Will continue to monitor.
[2017-09-07] MEDS: DOCUSATE SODIUM 100 MG CAPSULE PO SCH (20:56)
[2017-09-07] MEDS: INSULIN REGULAR, HUMAN 300 UNITS/3 ML VIAL SQ PRN (21:00)
[2017-09-07 21:23] VITALS: BP 117/68
--- NOTE | 2017-09-07 21:28 | NUR ---
Offered to assist patient back in bed, patient refused. Safety maintained. Family at bedside. Call light within reach. Will continue to monitor.
[2017-09-08] MEDS: BLOOD SUGAR DIAGNOSTIC 1 EACH STRIP VI SCH ×4 (06:38→21:22)
[2017-09-08] MEDS: METFORMIN HCL 500 MG TABLET PO SCH ×2 (07:53→17:13)
[2017-09-08] MEDS: LEVETIRACETAM 500 MG TABLET PO SCH ×2 (08:02→21:20)
[2017-09-08] MEDS: POTASSIUM CHLORIDE 10 MEQ CAPSULE.SA PO SCH (08:02)
[2017-09-08] MEDS: MEMANTINE HCL 10 MG TABLET PO SCH (08:03)
[2017-09-08] MEDS: FUROSEMIDE 40 MG TABLET PO SCH (08:03)
[2017-09-08] MEDS: HYDROCHLOROTHIAZIDE 12.5 MG CAPSULE PO SCH (08:03)
[2017-09-08] MEDS: CALCIUM CARBONATE 500 MG TABLET PO SCH (08:03)
[2017-09-08] MEDS: METOPROLOL SUCCINATE XL 25 MG TAB.SR.24H PO SCH (08:06)
[2017-09-08] MEDS: LOSARTAN POTASSIUM 50 MG TABLET PO SCH (08:07)
[2017-09-08] MEDS: ANASTROZOLE 1 MG TABLET PO SCH (08:08)
[2017-09-08] MEDS: INSULIN REGULAR, HUMAN 300 UNIT/3 ML VIAL SQ PRN (12:09)
--- NOTE | 2017-09-08 14:07 | NUR ---
INTERDISCIPLINARY TEAM CONFERENCE
[2017-09-08] MEDS: SIMVASTATIN 20 MG TABLET PO SCH (17:13)
--- NOTE | 2017-09-08 17:17 | NUR ---
Patient awake and alert, sitting in her chair, watching TV. Pertinent assessments done to all body systems, no apparent distress noted, denies pain. Patient is being monitored for her blood sugar, no signs and no symptoms of hypoglycemia or hyperglycemia at this time. Patients continues to be compliant with her plan of care, addressed all concerns about her discharge tomorrow together with the daughter. Needs attended promptly. Call light in reach
--- NOTE | 2017-09-08 19:40 | NUR ---
Received pt up in chair, AAO and watching television. No acute distress noted. Verbally responsive and able to make needs known. Denies pain or discomfort at this time. All safety measures and fall precautions maintained. Call light and all personal belongings within reach. Will continue to monitor.
[2017-09-08 20:32] VITALS: BP 103/64
[2017-09-08] MEDS: DOCUSATE SODIUM 100 MG CAPSULE PO SCH (21:19)
[2017-09-08] MEDS: INSULIN REGULAR, HUMAN 300 UNITS/3 ML VIAL SQ PRN (21:24)
[2017-09-09] MEDS: BLOOD SUGAR DIAGNOSTIC 1 EACH STRIP VI SCH ×2 (06:40→11:38)
--- NOTE | 2017-09-09 08:18 | NUR ---
Received patient awake, up on the chair, alert, verbally responsive, able to make needs known. No noted signs of any acute distress. No complain of any pain or discomfort. Call light placed within reach. Reminded to use call light for assistance with verbalized understanding. Assisted to her needs.
[2017-09-09] MEDS: FUROSEMIDE 40 MG TABLET PO SCH (08:39)
[2017-09-09] MEDS: METFORMIN HCL 500 MG TABLET PO SCH (08:39)
[2017-09-09] MEDS: POTASSIUM CHLORIDE 10 MEQ CAPSULE.SA PO SCH (08:42)
[2017-09-09] MEDS: MEMANTINE HCL 10 MG TABLET PO SCH (08:42)
[2017-09-09] MEDS: LEVETIRACETAM 500 MG TABLET PO SCH (08:42)
[2017-09-09] MEDS: CALCIUM CARBONATE 500 MG TABLET PO SCH (08:42)
[2017-09-09] MEDS: ANASTROZOLE 1 MG TABLET PO SCH (08:43)
[2017-09-09] MEDS: METOPROLOL SUCCINATE XL 25 MG TAB.SR.24H PO SCH (09:00)
[2017-09-09] MEDS: HYDROCHLOROTHIAZIDE 12.5 MG CAPSULE PO SCH (09:00)
[2017-09-09] MEDS: LOSARTAN POTASSIUM 50 MG TABLET PO SCH (09:00)
[2017-09-09 09:42] VITALS: BP 113/70
[2017-09-09] MEDS: INSULIN REGULAR, HUMAN 300 UNIT/3 ML VIAL SQ PRN (11:52)
--- NOTE | 2017-09-09 13:07 | NUR ---
Received an order from Dr. Avalos for discharge. Order carried out. Patient made aware.
--- NOTE | 2017-09-09 13:35 | NUR ---
Report given to Lydia CRUMP hand cigar making supervisor at [facility].
--- NOTE | 2017-09-09 15:00 | NUR ---
Called Daughter Abigail, made aware of discharge, given discharge instructions with verbalized understanding.
[2017-09-09 15:31] VITALS: BP 114/74
--- NOTE | 2017-09-09 16:24 | NUR ---
1620 [facility] Patient remained alert, verbally responsive, not in any form of acute distress. She denies any pain or discomfort at this time. All belongings brought with patient.
== END 2017-09-09 16:20 | DRG 950 ==
PROVIDERS: ADMIT Physical Medicine & Rehabilitation Pain Medicine; ATTEND Physical Medicine & Rehabilitation Pain Medicine
DX: S06.5X9D Traumatic subdural hemorrhage with loss of consciousness of unspecified duration, subsequent encounter (principal); E11.65 Type 2 diabetes mellitus with hyperglycemia; G40.909 Epilepsy, unspecified, not intractable, without status epilepticus; E03.9 Hypothyroidism, unspecified; W18.30XD Fall on same level, unspecified, subsequent encounter; Z85.3 Personal history of malignant neoplasm of breast; Z90.12 Acquired absence of left breast and nipple; Z85.038 Personal history of other malignant neoplasm of large intestine; Z92.3 Personal history of irradiation; R26.9 Unspecified abnormalities of gait and mobility; R41.3 Other amnesia; Z90.49 Acquired absence of other specified parts of digestive tract; R53.1 Weakness; Z87.440 Personal history of urinary (tract) infections; E83.42 Hypomagnesemia; E87.6 Hypokalemia; I10 Essential (primary) hypertension; E66.9 Obesity, unspecified; Z68.28 Body mass index [BMI] 28.0-28.9, adult; I89.0 Lymphedema, not elsewhere classified
CPT/HCPCS: 36415; 83735; 84100; 85025; 92507; 92523; 97110; 97112; 97116; 97165; 97530; 97535; J1815; J3480; J3490